=== PATIENT | female | born 1955 | race American Indian/Alaskan Native ===

== ENCOUNTER 2018-04-01 12:03 | Emergency (ER) | payer MEDICARE ==
[2018-04-01 12:29] VITALS: BP 196/77
--- NOTE | 2018-04-01 14:49 | XRay Report ---
LEFT HIP: Trauma, pain. The bony architecture is intact without evidence of fracture or dislocation. No significant soft tissue abnormality is seen. IMPRESSION: Normal left hip.
== END 2018-04-01 12:30 | disposition left against medical advice (07) ==
LOC: ED 12:03
DX: M25.552 Pain in left hip (principal); W18.30XA Fall on same level, unspecified, initial encounter; Y93.89 Activity, other specified; Y99.8 Other external cause status; Y92.89 Other specified places as the place of occurrence of the external cause; Z86.73 Personal history of transient ischemic attack (TIA), and cerebral infarction without residual deficits; Z53.21 Procedure and treatment not carried out due to patient leaving prior to being seen by health care provider